=== PATIENT | female | born 1970 | race Caucasian/White ===

== ENCOUNTER → 2017-10-04 | Day surgery (SDC) | payer OTHER ==
[~2017-10-04] MED LIST: BUPIVACAINE 0.5%/EPI 30 ML SDV INJ ONE; CEFAZOLIN SOD 2 GM/D5W 50ML 50 ML IV ONE; DEXAMETHASONE SOD PHOS INJ 4 MG/ML VIAL ONE; FENTANYL CITRATE/PF 100MCG/2 ML INJ ONE; KETOROLAC TROMETHAMINE 30 MG/ML VIAL ONE; METOCLOPRAMIDE HCL 10 MG/2ML VIAL ONE; MIDAZOLAM HCL 2 MG/2 ML VIAL ONE; ONDANSETRON HCL INJ 2 MG/ML VIAL ONE; PANTOPRAZOLE SO40 MG PO; PREMARIN0.625 MG PO; PROPOFOL IV EMULSION 10 MG/ML 20 ML VIAL ONE; SEVOFLURANE INHAL SOLN 250 ML PEN BTL ONE
--- OUTSIDE RECORDS SUMMARY | 2017-10-04 09:25 | XMS REPORT | Clinical Summary ---
Author Author [facility] Organization [facility] Address Unknown Phone Unavailable Care Team Providers Care Progress Worker Name Role Phone Alberta Dooley MD PCP Allergies No Known Allergies Current Medications Prescription Sig. Disp. Refills Start End Date Status Date TESTOSTERONE, BULK, MISC Take 0.8 mg by mouth Active daily. FERROUS FUMARATE (IRON Take 1 tablet by mouth 12/08/19 Active ORAL) nightly. Rx by LYDIA cruzegel PREMARIN 1.25 mg tablet Take 1.25 mg by mouth 11 09/04/19 Active once daily. Takes 2 tabs 16 daily ascorbic acid (vitamin C) Take 1,000 mg by mouth Active 1000 MG tablet every morning. Rx by albuterol (PROVENTIL Inhale 2 puffs every 6 Active HFA;VENTOLIN HFA) 90 (six) hours as needed for mcg/actuation inhaler wheezing. Bring to the hospital Active Problems No known active problems Encounters Date Type Specialty Care Team Description 01/20/2017 Office Visit General Surgery Geno Mcarthur MD S/P mastectomy, bilateral (Primary Dx); BRCA2 positive after 10/03/2016 Family History Medical History Relation Name Comments Diabetes Father Tonny [place] Cancer Maternal Aunt Breast cancer Maternal Aunt Barby. Levy Cancer Maternal Aunt , Mario ,, , Levy, , Mario Levy Breast cancer Maternal , Nikole Grandmother Mcduffie, , Nikole Kourtney Cancer Maternal , Nikole ,, , Grandmother Mcduffie, , Nikole Kourtney Pulmonary embolism Mother No Known Problems Sister Relation Name Status Comments Father Tonny [place] Alive Maternal Aunt Maternal Aunt Barby. Levy Maternal Aunt , Mario Levy, , Mario Levy Maternal Grandmother , Nikole Oconnell, , Nikole Oconnell Mother Alive Sister Alive Social History Tobacco Use Types Packs/Day Years Used Date Never Smoker Alcohol Use Drinks/Week oz/Week Comments Yes 0-1 Glasses occasional of wine Sex Assigned at Date Recorded Not on file Last Filed Vital Signs Not on file Plan of Treatment Date Type Specialty Care Team Description 01/24/2018 Office Visit General Surgery Geno Mcarthur MD [address] [address] Health Maintenance Due Date Last Done Comments CERVICAL CANCER SCREENING 1990 INFLUENZA VACCINE 12/06/2017 Implants Implanted Type Area Warehouse Hand Device Expiration Model / Identifier Date Serial / Lot Implant Brst Memorygel Ult Hpro Plastic or Left: MENTOR 08/15/2020 350 [id number] Viola-Fild Sm Rnd 590 - [employer] / [id number] - [id number] Implants [id number] Implanted: Qty: 1 on 02/10/2016 by or Hermelindo Wang / Sonam Dooley MD [employer] [id number] or Sets Implant Brst Memorygel Ult Hpro Plastic or Right: MENTOR 01/02/2020 350 [id number] Viola-Fild Sm Rnd 590cc - [employer] / [id number] - [id number] Implants [id number] Implanted: Qty: 1 on 02/10/2016 by or Hermelindo Hill / Sonam Dooley MD [employer] [id number] or Sets Surgical Implants - Breast-07/06/2014 Surgical Implanted: Qty: 2 on 07/06/2014 Implants - Breast Results Not on fileafter 10/03/2016 Insurance Payer Benefit Subscriber ID Type Phone Address Plan / Group AETNA AETNA xxxxxxxxxx HMO HMO,POS,EP O, MC/EC Work: [address] [place] [phone] Home: [employer] Self 1970 Work: [address] [place] [phone] Surgery Home:
--- NOTE | 2017-10-06 20:57 | Operative Report ---
DATE OF PROCEDURE: October 04, 2017 PREOPERATIVE DIAGNOSES 1. Right knee medial meniscus tear. 2. Right knee degenerative joint disease of the knee. POSTOPERATIVE DIAGNOSES 1. Right knee medial meniscus tear. 2. Right knee degenerative joint disease of the knee. OPERATION/PROCEDURE PERFORMED: 1. Right knee examination under anesthesia. 2. Right knee arthroscopy. 3. Right knee partial medial meniscectomy. 4. Right knee chondroplasty of the patella, the trochlea, the medial femoral condyle and medial tibial plateau, the lateral femoral condyle and lateral tibial plateau. ANESTHESIA: General endotracheal intubation anesthesia. IV FLUIDS: Per the anesthesia record. BRIEF DESCRIPTION OF THE PATIENT'S OPERATIVE PROCEDURE: Ms. Guallpa was taken to the operating room and placed in supine position on operating table. Following induction of general anesthesia as well as endotracheal intubation, the patient's right lower extremity was examined under anesthesia. She was found to have a mild effusion within the knee joint, but an otherwise ligamentously stable knee. The patient's lower extremity was prepped and draped in standard surgical fashion. A 2 portal technique was used to provide this patient arthroscopic evaluation of the knee joint. Examination of the suprapatellar pouch and medial and lateral gutters found no evidence of loose bodies. There was, however, evidence of chondromalacia of the patellar and trochlear surfaces. Scope was advanced into the medial compartment and examination of the medial compartment demonstrated a torn medial meniscus. There was chondromalacia of articulating surfaces. A combination of biting forceps and motorized shaver were used to resect the torn portion of meniscus. Chondroplasties of the medial femoral condyle and medial tibial plateau were performed at this time. Scope was advanced into intercondylar notch. Anterior cruciate ligament was identified and was found to be intact. Scope was advanced into the lateral compartment and there was chondromalacia of articulating surfaces. A chondroplasty of lateral femoral condyle and lateral tibial plateau performed at this time. Scope was then placed in suprapatellar pouch and chondroplasties of the patella and trochlea were performed. The knee was deflated of its sterile normal saline. Each of the portal sites were closed using 4-0 nylon suture. The portal sites as well as the knee itself were then injected with 1/2 percent Marcaine with epinephrine. Sterile dressings were applied. The patient was awakened and taken to the postanesthesia care unit in stable condition. Job#: [id number]
== END | disposition home or self-care (01) ==
LOC: OR 09:22
PROVIDERS: ATTEND Specialist
DX: S83.221A Peripheral tear of medial meniscus, current injury, right knee, initial encounter (principal); M22.41 Chondromalacia patellae, right knee; M17.11 Unilateral primary osteoarthritis, right knee; S76.311A Strain of muscle, fascia and tendon of the posterior muscle group at thigh level, right thigh, initial encounter; J45.909 Unspecified asthma, uncomplicated; K21.9 Gastro-esophageal reflux disease without esophagitis; K25.9 Gastric ulcer, unspecified as acute or chronic, without hemorrhage or perforation; F41.9 Anxiety disorder, unspecified; X58.XXXA Exposure to other specified factors, initial encounter; Z87.891 Personal history of nicotine dependence
CPT/HCPCS: 29881; J1100; J1885; J2250; J2405; J2765

== ENCOUNTER → 2017-12-11 | Outpatient (CLI) | payer OTHER ==
[~2017-12-11] MED LIST changes: -BUPIVACAINE 0.5%/EPI 30 ML SDV INJ ONE; -CEFAZOLIN SOD 2 GM/D5W 50ML 50 ML IV ONE; -DEXAMETHASONE SOD PHOS INJ 4 MG/ML VIAL ONE; -FENTANYL CITRATE/PF 100MCG/2 ML INJ ONE; -KETOROLAC TROMETHAMINE 30 MG/ML VIAL ONE; -METOCLOPRAMIDE HCL 10 MG/2ML VIAL ONE; -MIDAZOLAM HCL 2 MG/2 ML VIAL ONE; -ONDANSETRON HCL INJ 2 MG/ML VIAL ONE; -PROPOFOL IV EMULSION 10 MG/ML 20 ML VIAL ONE; -SEVOFLURANE INHAL SOLN 250 ML PEN BTL ONE
== END ==
LOC: RAD 09:27
PROVIDERS: ATTEND Internal Medicine
DX: R60.9 Edema, unspecified (principal)
CPT/HCPCS: 93970